=== PATIENT | male | born 1985 | race Hispanic/Latino ===

== ENCOUNTER 2023-08-26 10:00 | Emergency (ER) | payer SELFPAY ==
[2023-08-26] VITALS (8 sets, daily range): BP systolic 78–145; BP diastolic 56–89
[~2023-08-26] VITALS: Ht 165.1 cm; Wt 68.0 kg
[2023-08-26 10:51] LABS: URINE BILIRUBIN - DIPSTICK Negative (NEGATIVE); URINE BLOOD DIPSTICK Negative (NEGATIVE); URINE GLUCOSE - DIPSTICK Negative (NEGATIVE); URINE KETONE Negative (NEGATIVE); URINE LEUK ESTERASE Negative (NEGATIVE); URINE NITRITE - DIPSTICK Negative (Negative); URINE PROTEIN - DIPSTICK Negative (NEG-TRACE); URINE UROBILINOGEN - DIPSTICK 0.2 E.U./dL (0.2)
[2023-08-26 11:04] LABS: URINE COLOR Yellow
[2023-08-26 11:26] LABS: BASO% 0.6 % (0-3); EOS% 2.9 % (0-8); HEMOGLOBIN 15.2 g/dl (14.0-18.0); IMMATURE GRANULOCYTES 0.2 % (0.0-5.0); LYMPH% 33.1 % (15-41); MEAN CORPUSCULAR HGB 30.4 pG CALC (26.0-32.0); MONO% 6.7 % (2-13); NEUT# 3.52 thou/uL (1.82-7.42); NEUT% 56.5 % (42-76); RED CELL DISTRI WIDTH 11.9 % (11.5-15.5)
[2023-08-26 11:41] LABS: ALBUMIN 4.7 g/dL (3.2-5.0); ALKALINE PHOSPHATASE 92 u/l (38-126); ANION GAP 13 (6-22 (CALC)); BILIRUBIN, TOTAL 0.7 mg/dL (0.2-1.3); BUN 12 mg/dL (9-20); BUN/CREATININE RATIO 15 (12-20 (CALC)); CARBON DIOXIDE 25 mmol/l (22-30); CHLORIDE 108 mmol/l (95-108); CREATININE 0.8 mg/dL (0.7-1.3); GFR FOR AFR.AMER. > 60 ML/MIN (>=60 (CALC)); GFR OTHER RACES > 60 ML/MIN (>=60 (CALC)); POTASSIUM 4.3 mmol/l (3.5-5.1); SGOT/AST 35 u/l (17-59); SODIUM 141 mmol/l (137-146)
[2023-08-26] MEDS ORDERED: TRAMADOL HYDROC50 M1 PO (11:57)
== END 2023-08-26 12:15 | disposition home or self-care (01) | DRG 392 ==
LOC: ED 10:00
PROVIDERS: Family Medicine
DX: R10.32 Left lower quadrant pain (principal)

== ENCOUNTER 2023-09-02 08:51 | Emergency (ER) | payer SELFPAY ==
[2023-09-02] VITALS (8 sets, daily range): BP systolic 113–136; BP diastolic 65–82
[~2023-09-02] VITALS: Ht 165.1 cm; Wt 74.0 kg
[~2023-09-02 08:51] MED LIST: TRAMADOL HYDROC50 M1 PO
[2023-09-02] MEDS ORDERED: ORPHENADRINE CITRATE 30 MG/ML AMP IM ONE (10:30)
[2023-09-02] MEDS ORDERED: DEXAMETHASONE SOD. PHOSPHATE 10 MG/ML VIAL IM ONE (10:30)
[2023-09-02 10:44] LABS: URINE BILIRUBIN - DIPSTICK Negative (NEGATIVE); URINE BLOOD DIPSTICK Negative (NEGATIVE); URINE GLUCOSE - DIPSTICK Negative (NEGATIVE); URINE KETONE 15 mg/dL (NEGATIVE); URINE LEUK ESTERASE Negative (NEGATIVE); URINE NITRITE - DIPSTICK Negative (Negative); URINE PH 7.5 (4.5-8.0); URINE PROTEIN - DIPSTICK Negative (NEG-TRACE); URINE UROBILINOGEN - DIPSTICK 0.2 E.U./dL (0.2)
[2023-09-02 10:53] LABS: URINE COLOR Yellow
[2023-09-02] MEDS ORDERED: MEDDOSEPAK PO (11:01)
[2023-09-02] MEDS ORDERED: ORPHENADRINE100 MG PO (11:01)
== END 2023-09-02 11:10 | disposition home or self-care (01) | DRG 392 ==
LOC: ED 08:51
PROVIDERS: Emergency Medicine
DX: R10.32 Left lower quadrant pain (principal)